=== PATIENT | female | born 1990 | race Caucasian/White ===

== ENCOUNTER → 2017-06-10 | Outpatient (CLI) | payer MEDICAID ==
[~2017-06-10] MED LIST: AMIT50TA3 PO; BUSP1TAB PO; BUTA1CAP5 PO; CETI10 PO; CYCL1TAB29 PO; FLUT1SPR5 EACH NARE; FURO1TAB62 PO; HYDR25TA5 PO; IBUP800T23 PO; IMIT50TA PO; POTA-163 PO; Z.0.NO CURRENT MEDS
[2017-06-10 10:16] LABS: AUTOMATED NEUTROPHIL # 6.3 TH/MM3 (1.8-7.7); BASOPHIL # 0.1 TH/MM3 (0-0.2); BASOPHIL % 0.6 % (0.0-2.0); EOSINOPHIL # 0.4 TH/MM3 (0-0.4); EOSINOPHIL % 3.7 % (0.0-4.0); HEMATOCRIT 42.9 % (35.0-46.0); HEMO FLAGS DIFF FINAL; LYMPH % 26.8 % (9.0-44.0); LYMPHOCYTE # 2.8 TH/MM3 (1.0-4.8); MEAN CELL VOLUME 93.6 FL (80.0-100.0); MEAN CORPUSCULAR HEMOGLOBIN 31.8 PG (27.0-34.0); MONO % 7.5 % (0.0-8.0); NEUT % 61.4 % (16.0-70.0); PLATELET COUNT 285 TH/MM3 (150-450); RED BLOOD COUNT 4.59 MIL/MM3 (4.00-5.30); RED CELL DISTRIBUTION WIDTH 12.9 % (11.6-17.2); WHITE BLOOD COUNT 10.3 TH/MM3 (4.0-11.0)
[2017-06-10 10:22] LABS: PROTHROMBIN TIME - PATIENT 10.9 SEC (9.8-11.6)
[2017-06-10 10:39] LABS: ALT (GPT) 24 U/L (10-53); ANION GAP 7 MEQ/L (5-15); BICARBONATE 26.6 MEQ/L (21.0-32.0); BLOOD UREA NITROGEN 7 MG/DL (7-18); CHLORIDE 108 MEQ/L (98-107); GLOMERULAR FILTRATION RATE 87 ML/MIN (>89); GLUCOSE,FASTING 87 MG/DL (74-99); POTASSIUM 4.4 MEQ/L (3.5-5.1); SODIUM (NA) 142 MEQ/L (136-145)
[2017-06-10 11:15] LABS: ALKALINE PHOSPHATASE 86 U/L (45-117); AST (GOT) 14 U/L (15-37); TOTAL BILIRUBIN ADULT 0.3 MG/DL (0.2-1.0)
[2017-06-10 11:29] LABS: BHCG SCREEN QUALITATIVE LESS THAN 1 MIU/ML (0-5)
== END ==
LOC: CPRE 09:26
PROVIDERS: ATTEND Obstetrics & Gynecology Gynecologic Oncology
DX: Z01.812 Encounter for preprocedural laboratory examination (principal); R87.619 Unspecified abnormal cytological findings in specimens from cervix uteri
CPT/HCPCS: 36415; 80053; 84703; 85025; 85610; 85730

== ENCOUNTER → 2017-06-22 | Day surgery (SDC) | payer MEDICAID ==
[~2017-06-22] VITALS: Ht 157.5 cm; Wt 128.0 kg
[~2017-06-22] MED LIST changes: +*morphine SULFATE 8 MG/ML PERIprocedure ONLY ONE; +CHLORHEXIDINE GLUCONATE 2 % 1 PACK (2 CLOTHS) TOPICAL PRN; +DEXAMETHASONE SOD PHOS 4 MG/ML VIAL IV ONE; +DO NOT ADM ANY ANTICOAGULANT DRUGS PRN; +FERRIC SUBSULFATE 8 ML TOP SOLN TOPICAL ONE; +INSULIN HUMAN REGULAR 1,000 UNITS/10 ML VIAL SQ PRN; +KETOROLAC TROMETHAMINE 30 MG/ML (IVP) VIAL IV PUSH ONE; +LACTATED RINGER'S 1000 ML IV PRN; +LIDOCAINE 2%/EPINEPHrine PF 1:200,000 20ML SDV ONE; +LIDOCAINE HCL 1% 50 ML VIAL ONE; +LIDOCAINE HCL 1% PF 5 ML AMPULE OTHER ONE; +METOPROLOL TARTRATE 25 MG TAB PO PRN; +ONDANSETRON HCL 4 MG/2 ML VIAL IV PUSH ONE; +POVIDONE IODINE 5% (ANTISEPSIS KIT) 4 APPLICATIONS EACH NARE PRN; +PROPOFOL 200 MG/20 ML AMP IV ONE; +SODIUM CHLORID 0.9% 500 ML IV PRN; +VASOPRESSIN 20 UNITS/ML VIAL (IVTITR) ONE; -Z.0.NO CURRENT MEDS; +ceFAZolin 2 GM PREMIX 50 ML IV SCH; +oxyCODONE/ACETAMINOPHEN 5 MG/325 MG TAB PO PRN
--- NOTE | 2017-06-22 15:09 | MP ---
cc: ZULEYMA FISCHER MD Corrected Copy: 06/24/17 DATE OF SURGERY: 06/22/2017 PREOPERATIVE DIAGNOSIS: High-grade cervical dysplasia POSTOPERATIVE DIAGNOSIS High-grade cervical dysplasia. PROCEDURE: 1. Examination under anesthesia. 2. Cold knife conization of cervix. 3. Endocervical curettage. SURGEON Zuleyma Fischer MD [employer] [place] first aid officer ANESTHESIA: Laryngeal mask anesthesia ESTIMATED BLOOD LOSS Less than 20 cc. IV FLUIDS 800 cc URINE OUTPUT 30 cc HISTORY This 26-year-old female. Abnormal Pap smear lead to colposcopy. Biopsy showing high-grade dysplasia. There was the acetowhite epithelial changes in all four quadrants so the initial inclination was consider a LEEP procedure, but she was referred to us for evaluation and we recommended a conization of the cervix. She was counseled in our office. She is seen in the preop holding area where she is again counseled. She has an indwelling IUD and she understands that we will be as careful as possible but there may be a possibility of dislodging the IUD, may be possibly cutting the string that extends to the endocervical canal and such that it may ultimately require hysteroscopic removal, but it should in all probability stay in place and continue to function with this hormone delivery and control capacity. She is made aware of any other potential drawbacks or what to expect from a conization as well as potential benefits. Her questions were asked and answered. She expressed good understanding and removed forward with surgery. FINDINGS On exam under anesthesia, there is no appreciably enlarged inguinal lymph nodes. External genitalia without mass or lesion. Cervix is smooth circumferentially. The uterine cavity sounds to 9 cm. There is no grossly visible invasive disease. After application of dilute acetic acid inspection shows acetowhite epithelial changes and subtle vascular changes circumferentially in the transformation zone extending from the os out onto all four quadrants of the ectocervix. PROCEDURE She was taken to the operating room placed in dorsal lithotomy position. After laryngeal mask anesthesia was administered, time-out was undertaken. She was identified by sight recognition and hospital ID bracelet and the proposed procedure was reviewed and confirmed. She was prepped and draped in sterile fashion. Tenaculum placed on the cervix. Uterine cavity sounded with a lacrimal probe and the axis of the cervical canal was identified. 0 Vicryl suture placed [id number] fashion at 3 o'clock and 9 o'clock position in the lateral cervix for hemostasis and countertraction. Lidocaine and epinephrine injected circumferentially into the cervix. A scalpel was used to circumferentially remove all areas of abnormality on the ectocervix angling in toward the endocervical canal to complete the cone biopsy. In the process the external portion of the IUD strings were cut in the process of dissection as this could not be avoided and the endocervical curettings were subsequently obtained. The cone bed was rendered hemostatic with cautery and topical Monsel's solution. There was good hemostasis. Preliminary final counts were correct. There were no remaining foreign objects in the vagina. She was returned to dorsal supine position and was pending reversal of anesthesia when I left the operating room to [facility] for Post Anesthesia Care Unit. MD XIOMARA Flores/rylan /2:03 PM /2:17 PM
[2017-06-22 16:30] VITALS: BP 113/76; PULSE 86; RESP 18; TEMP 98; O2SAT 95
== END | disposition home or self-care (01) ==
LOC: HSDC 10:50
PROVIDERS: ATTEND Obstetrics & Gynecology Gynecologic Oncology
DX: D06.9 Carcinoma in situ of cervix, unspecified (principal); F41.9 Anxiety disorder, unspecified; Z79.899 Other long term (current) drug therapy
CPT/HCPCS: 00940; 57520; 88305; 88307; J0690; J1100; J1885; J2270; J2405; J3010; J7120